=== PATIENT | female | born 1955 | race Caucasian/White ===

== ENCOUNTER 2017-06-15 23:25 | Inpatient (IN) | payer OTHER ==
[~2017-06-15] VITALS: Ht 170.2 cm; Wt 97.3 kg
[~2017-06-15 23:25] MED LIST: ATENOLOL5 PO; CORE25 PO; CYMBALTA60 MG PO; DYA PO; EUTHYROX PO; FLE10 PO; LIPOZENE PO; NEURONTIN600 M PO; ZOC20 PO
[2017-06-15 23:32] VITALS: Ht 170.2 cm; Wt 97.3 kg
[2017-06-15] MEDS ORDERED: ATIVAN1 MG PO (23:37)
[2017-06-15] MEDS ORDERED: PROZAC10 M2 PO (23:37)
[2017-06-15] MEDS ORDERED: GABAPENTIN600 M1 (23:37)
[2017-06-15] MEDS ORDERED: PRILOSEC OTC20 M1 PO (23:38)
[2017-06-15] MEDS ORDERED: DICLOFENAC SODI50 MG PO (23:38)
[2017-06-15] MEDS ORDERED: BENAZEPRIL HYDR40 M1 PO (23:38)
[2017-06-15] MEDS ORDERED: CYMBALTA30 M1 PO (23:39)
[2017-06-15] MEDS ORDERED: CARVEDILOL6.25 M1 PO (23:40)
[2017-06-15] MEDS ORDERED: METFORMIN HYDR500 M1 (23:40)
[2017-06-16 01:19] LABS: BASOPHIL % 0.4 % (0-2); PLATELET COUNT 236 x10^3mcL (130-400); RED CELL DISTRIBUTION WIDTH 14.3 % (11.5-14.5)
[2017-06-16 01:27] LABS: CARBON DIOXIDE 25.1 mmol/L (21-32); CHLORIDE SERUM 106 mmol/L (98-107); GLUCOSE SERUM 128 mg/dL (74-106); POTASSIUM SERUM 3.8 mmol/L (3.5-5.1); SODIUM SERUM 138 mmol/L (136-145)
[2017-06-16 01:28] LABS: ALBUMIN 3.4 g/dL (3.4-5.0); AST/SGOT 205 U/L (15-37); BILIRUBIN TOTAL 1.9 mg/dL (0.20-1.00); CALCIUM 8.4 mg/dL (8.5-10.1); CREATININE SERUM 0.8 mg/dL (0.6-1.0); GFR1 > 60 mL/min; TOTAL PROTEIN, SERUM 6.8 g/dL (6.4-8.2)
[2017-06-16 01:29] LABS: ALKALINE PHOSPHATASE 88 U/L (46-116); ALT/SGPT 154 U/L (14-59); CHOLESTEROL 127 mg/dL (<200); CHOLESTEROL/HDL RATIO 7.1; HDL CHOLESTEROL 18 mg/dL (40-60); LIPASE 56 IU/L (73-393); TRIGLYCERIDES 81 mg/dL (<150)
[2017-06-16 01:53] LABS: FREE T4 1.21 ng/dL (0.76-1.46); FREE THYROXINE INDEX 2.5 ug/dL (1.4-4.5); T4(THYROXINE) 7.5 ug/dL (4.7-13.3)
[2017-06-16 02:28] LABS: UA SPECIFIC GRAVITY >=1.030 (1.005-1.035); microscopic required? YES; urine erythrocyte NEGATIVE (NEGATIVE)
[2017-06-16 03:33] VITALS: BP 137/68
[2017-06-16 05:38] VITALS: BP 158/86
[2017-06-16 05:53] LABS: MAGNESIUM 2.1 mg/dL (1.8-2.4); PHOSPHOROUS 4.4 mg/dL (2.5-4.9)
[2017-06-16 08:58] VITALS: BP 145/73
[2017-06-16 09:14] VITALS: BP 145/73
[2017-06-16 10:54] LABS: T3 TOTAL 1.07 ng/mL
[2017-06-16 12:30] VITALS: BP 119/80
[2017-06-16 15:08] LABS: BASOPHIL % 0.4 % (0-2); PLATELET COUNT 201 x10^3mcL (130-400)
[2017-06-16 15:32] VITALS: BP 119/80
[2017-06-16 15:44] LABS: CALCIUM 8.5 mg/dL (8.5-10.1); CARBON DIOXIDE 27.5 mmol/L (21-32); CREATININE SERUM 1.1 mg/dL (0.6-1.0); MAGNESIUM 2.1 mg/dL (1.8-2.4); PHOSPHOROUS 5.4 mg/dL (2.5-4.9); POTASSIUM SERUM 3.9 mmol/L (3.5-5.1)
== END 2017-06-16 20:51 | disposition short-term general hospital (02) | DRG 311 ==
LOC: ED 23:25 → DU 06-16 02:23
PROVIDERS: Family Medicine; Specialist
DX: I24.9 Acute ischemic heart disease, unspecified (principal); I50.43 Acute on chronic combined systolic (congestive) and diastolic (congestive) heart failure; J96.00 Acute respiratory failure, unspecified whether with hypoxia or hypercapnia; N17.0 Acute kidney failure with tubular necrosis; K72.90 Hepatic failure, unspecified without coma; J44.9 Chronic obstructive pulmonary disease, unspecified; E11.42 Type 2 diabetes mellitus with diabetic polyneuropathy; E11.51 Type 2 diabetes mellitus with diabetic peripheral angiopathy without gangrene; I10 Essential (primary) hypertension; K21.9 Gastro-esophageal reflux disease without esophagitis; K76.0 Fatty (change of) liver, not elsewhere classified; E78.2 Mixed hyperlipidemia; E03.9 Hypothyroidism, unspecified; I25.2 Old myocardial infarction; F17.210 Nicotine dependence, cigarettes, uncomplicated; Z86.73 Personal history of transient ischemic attack (TIA), and cerebral infarction without residual deficits; Z79.84 Long term (current) use of oral hypoglycemic drugs
CPT/HCPCS: 82962; 83880; 84439; 94150; J1644; J1940; J2930; J7620; Q0092

== ENCOUNTER 2020-04-11 23:05 | Emergency (ER) | payer OTHER ==
[~2020-04-11] VITALS: Ht 170.2 cm; Wt 100.7 kg
[~2020-04-11 23:05] MED LIST changes: +ATIVAN1 MG PO; +BENAZEPRIL HYDR40 M1 PO; +CARVEDILOL6.25 M1 PO; +CYMBALTA30 M1 PO; +DICLOFENAC SODI50 MG PO; +GABAPENTIN600 M1; +METFORMIN HYDR500 M1; +PRILOSEC OTC20 M1 PO; +PROZAC10 M2 PO
[2020-04-11 23:20] VITALS: Ht 170.2 cm; Wt 100.7 kg
[2020-04-12 00:01] LABS: BASOPHIL % 0.9 % (0.2-1.3); PLATELET COUNT 177 x10^3mcL (179-408)
[2020-04-12 00:03] LABS: RED CELL DISTRIBUTION WIDTH 19.2 % (12.3-17.7)
[2020-04-12 00:16] LABS: CALCIUM 8.5 mg/dL (8.5-10.1); CARBON DIOXIDE 20.5 mmol/L (21-32); CREATININE SERUM 1.2 mg/dL (0.6-1.0); POTASSIUM SERUM 3.6 mmol/L (3.5-5.1)
[2020-04-12 00:18] LABS: BILIRUBIN TOTAL 1.5 mg/dL (0.20-1.00); TOTAL PROTEIN, SERUM 6.7 g/dL (6.4-8.2)
[2020-04-12 00:21] LABS: ALBUMIN 3.2 g/dL (3.4-5.0); CHOLESTEROL/HDL RATIO 4.6
[2020-04-12 00:22] LABS: T3 TOTAL 1.26 ng/mL
[2020-04-12 00:25] LABS: FREE T4 1.32 ng/dL (0.76-1.46); FREE THYROXINE INDEX 2.8 ug/dL (1.4-4.5); T4(THYROXINE) 8.2 ug/dL (4.7-13.3)
[2020-04-12 01:04] LABS: UA SPECIFIC GRAVITY >=1.030 (1.005-1.035); microscopic required? YES; urine erythrocyte NEGATIVE (NEGATIVE)
[2020-04-12] MEDS ORDERED: ELIQUIS5 MG PO (02:27)
[2020-04-12] MEDS ORDERED: ALD25 PO (02:27)
[2020-04-12] MEDS ORDERED: LASIX40 MG PO (02:27)
[2020-04-12] MEDS ORDERED: METOLAZONE5 M1 PO (02:28)
[2020-04-12] MEDS ORDERED: MAG-OXIDE200 MG PO (02:28)
[2020-04-12 04:59] VITALS: BP 132/58
== END 2020-04-12 05:59 | disposition short-term general hospital (02) ==
LOC: ED 23:05
PROVIDERS: Specialist
DX: I21.4 Non-ST elevation (NSTEMI) myocardial infarction (principal); I50.9 Heart failure, unspecified; I25.10 Atherosclerotic heart disease of native coronary artery without angina pectoris; E11.9 Type 2 diabetes mellitus without complications; J45.909 Unspecified asthma, uncomplicated; Z88.0 Allergy status to penicillin; Z88.2 Allergy status to sulfonamides; Z88.6 Allergy status to analgesic agent; Z20.828 Contact with and (suspected) exposure to other viral communicable diseases
CPT/HCPCS: 83880; 84439; J1940; J3010; J3490; J7030; U0003